=== PATIENT | female | born 1990 | race African-American/Black ===

== ENCOUNTER 2021-08-18 10:01 | Emergency (ER) | payer OTHER ==
[2021-08-18 10:28] VITALS: BP 120/80; PULSE 76; TEMP 98.1; BMI 38.0
[2021-08-18] MEDS ORDERED: KETOROLAC TROMETHAMINE 30 MG/1 ML VIAL IM ONE (11:24)
[2021-08-18] MEDS ORDERED: KETOROLAC TROMETHAMINE 30 MG/1 ML VIAL ONE (11:28)
== END 2021-08-18 11:51 | disposition home or self-care (01) ==
LOC: JERFT 10:01
PROC: 3E023GC Introduction of Other Therapeutic Substance into Muscle, Percutaneous Approach (ICD-10-PCS; principal; 2021-08-18)
DX: M25.512 Pain in left shoulder (principal)
CPT/HCPCS: 73030-TC-LT-FY; 99284-25

== ENCOUNTER 2022-01-25 17:48 | Emergency (ER) | payer OTHER ==
[2022-01-25 18:19] VITALS: BP 111/75; PULSE 78; TEMP 99.2; BMI 37.5
[2022-01-25] MEDS ORDERED: ACETAMINOPHEN 325 MG TABLET (FP) PO ONE (18:25)
[2022-01-25] MEDS ORDERED: ACETAMINOPHEN 325 MG TABLET (FP) ONE (19:21)
[2022-01-25 19:37] LABS: BASO % 0.9 % (0-2.0); EOS % 7.1 % (0-4.5); LYMPH % 20.6 % (8-40); MCH 21.3 pg (25.7-33.7); MCHC 32.4 g/dl (32.0-36.0); MEAN CELL VOLUME 65.6 fl (80-96); MEAN PLT VOLUME 8.6 fl (7.5-11.1); NEUT % 58.4 % (42.8-82.8); PLATELET COUNT 269 10^3/uL (134-434); RBC 5.64 M/mm3 (3.60-5.2); RDW 16.9 % (11.6-15.6)
[2022-01-25 20:01] LABS: CALCIUM 8.7 mg/dL (8.5-10.1)
[2022-01-25 20:02] LABS: ALBUMIN 3.8 g/dl (3.4-5.0); BLOOD UREA NITROGEN 7.7 mg/dL (7-18)
[2022-01-25 20:05] LABS: CREATININE 0.9 mg/dL (0.55-1.3)
[2022-01-25 20:07] LABS: BILIRUBIN,TOTAL 0.5 mg/dL (0.2-1); TOT PROT 7.6 g/dl (6.4-8.2)
[2022-01-25 20:20] LABS: ANISOCYTOSIS 2+; MACROCYTOSIS 0
== END 2022-01-25 21:25 | disposition home or self-care (01) ==
LOC: JER 17:48
DX: R61 Generalized hyperhidrosis (principal); R51.9 Headache, unspecified; R09.81 Nasal congestion
CPT/HCPCS: 36415; 71046-TC-FY; 80053; 85025; 87804; 87807; 99284-25

== ENCOUNTER 2024-05-03 14:53 | Emergency (ER) | payer OTHER ==
[2024-05-03 15:47] VITALS: BP 118/66; PULSE 76; RESP 19; TEMP 99.9; BMI 37.1
== END 2024-05-03 17:09 | disposition home or self-care (01) ==
LOC: JERFT 14:53
DX: R06.2 Wheezing (principal); J40 Bronchitis, not specified as acute or chronic; Z20.822 Contact with and (suspected) exposure to COVID-19
CPT/HCPCS: 0241U-QW; 71046-TC-FY; 99284-25